=== PATIENT | male | born 1960 | race Caucasian/White ===

== ENCOUNTER 2019-05-13 10:05 | Emergency (ER) | payer MEDICAID ==
[~2019-05-13] VITALS: Ht 177.8 cm; Wt 108.9 kg
[~2019-05-13 10:05] MED LIST: ARIP1TAB9; BENA40TA
[2019-05-13 10:56] VITALS: BP 147/89
[2019-05-13] MEDS ORDERED: NALBUPHINE HCL 10 MG/1ml INJECTION IM ONE (11:30)
== END 2019-05-13 12:07 | disposition home or self-care (01) ==
LOC: ER 10:08
DX: M75.82 Other shoulder lesions, left shoulder (principal); M47.892 Other spondylosis, cervical region; I10 Essential (primary) hypertension
CPT/HCPCS: 72040; 73030; 96372; 99283; J2300